=== PATIENT | male | born 1995 | race American Indian/Alaskan Native ===

== ENCOUNTER 2020-08-01 14:30 | Emergency (ER) | payer SELFPAY ==
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
[2020-08-01 16:28] VITALS: BP 136/95
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
[2020-08-01] MEDS ORDERED: CYCLOBENZAPRINE 10 MG TAB PO ONE (16:42)
[2020-08-01] MEDS ORDERED: ACETAMINOPHEN 325 MG TAB PO ONE (16:42)
== END 2020-08-01 17:09 | disposition home or self-care (01) ==
LOC: ED 14:30
DX: S09.90XA Unspecified injury of head, initial encounter (principal); T07.XXXA Unspecified multiple injuries, initial encounter; M54.2 Cervicalgia; Z79.899 Other long term (current) drug therapy; W17.89XA Other fall from one level to another, initial encounter; Y93.89 Activity, other specified; Y92.89 Other specified places as the place of occurrence of the external cause; Y99.8 Other external cause status
CPT/HCPCS: 70450; 72125